=== PATIENT | male | born 1965 | race Caucasian/White ===

== ENCOUNTER 2020-02-18 07:19 | Day surgery (SDC) | payer BC ==
[~2020-02-18] VITALS: Ht 175.3 cm; Wt 68.9 kg
[2020-02-18] VITALS (8 sets, daily range): BP systolic 95–120; BP diastolic 63–80
[~2020-02-18 07:19] MED LIST: ASPIRIN81 MG ORAL; Atropine Inj 1mg/10ml Syr IVP PRN; BREO ELLIPTA 11 EACH IH; CRESTOR10 M2 ORAL; DiphenhydrAMINE 50mg/ml Inj IVP PRN; LR 1000ml 1,000 ML IVLG SCH; Midazolam 2mg/2ml Inj IVP PRN; OMEPRAZOLE40 M1 ORAL; PLAVIX75 MG ORAL; PROAIR HFA8.5 GM INH; UNOBMED; XIGDUO XR 5 MG1 EACH PO; fentaNYL 100 mcg/2 mL IV PRN
--- NOTE | 2020-02-18 07:48 | Anethesia Preoperative Eval ---
Anesthesia Pre-op PMH/ROS General Date of Evaluation: Feb 18, 2020 Time of Evaluation: 07:04 Anesthesiologist: debi ASA Score: ASA 3 Mallampati Score Class I : Soft palate, uvula, fauces, pillars visible Class II: Soft palate, uvula, fauces visible Class III: Soft palate, base of uvula visible Class IV: Only hard plate visible Mallampati Classification: Class II Surgeon: lilia Diagnosis: gerd, diarrhea Surgical Procedure: egd/colonoscopy Anesthesia History: none Social History: current smoker Family History: no anesthesia problems Allergies: Coded Allergies: PENICILLINS (Verified Allergy, Severe, SWELLING, HIVES, RASH , 02/12/20) Medications: see eMAR Patient NPO?: Yes Past Medical History Cardiovascular: Reports: other - dvt bilateral legs Pulmonary: Reports: asthma, COPD, other - hx/o dyspnea, Gastrointestinal/Genitourinary: Reports: GERD, other - diverticulitis Hematology/Immune: Reports: other - anticoagulation therapy, covid 19 ? PSxH Narrative: sinus surgery Anesthesia Pre-op Phys. Exam Physician Exam Last Vital Signs Date Time Temp Pulse Resp B/P (MAP) Pulse Ox O2 Delivery O2 Flow Rate FiO2 02/18/20 08:03 Room Air 02/18/20 08:01 97.9 82 20 114/73 99 Constitutional: NAD Neurologic: CN 2-12 intact Cardiovascular: RRR Respiratory: CTA Gastrointestinal: S/NT/ND Airway Exam Mallampati Score: Class II MO: limited Neck: flexible TMD: 2fb ROM: limited Anesthesia Pre-op A/P Labs Microbiology Date/Time Source Procedure Growth Status 02/18/20 07:30 Nasopharynx SARS-CoV-2 RdRp Gene Assay - Final Complete Risk Assessment & Plan Assessment: asa3 Plan: mac Status Change Before Surgery: No Pre-Antibiotics Drug: Arielle Purdy MD Feb 18, 2020 07:48
[2020-02-18] MEDS ORDERED: CIALIS20 MG ORAL (08:15)
[2020-02-18] MEDS ORDERED: LR 1000ml 1,000 ML IVLG SCH (09:00)
--- NOTE | 2020-02-18 09:23 | Pre-Procedure Note/Attestation ---
Pre-Procedure Note/Attestation Complete Prior to Procedure Planned Procedure: not applicable Procedure Narrative: esophagogastroduodenoscopy and colonoscopy Indications for Procedure Pre-Operative Diagnosis: gerd, diarrhea Attestation I attest that I discussed the nature of the procedure; its benefits; risks and complications; and alternatives (and the risks and benefits of such alternati ves), prior to the procedure, with the patient (or the patient's legal dental detail representative). I attest that, if there was a reasonable possibility of needing a blood transfusion, the patient (or the patient's legal dental detail representative) was given the [facility] standardized written summary, pursuant to the [place] Blood Safety Act ([place] Health and Safety Code # 1645, as amended). I attest that I re-evaluated the patient just prior to the surgery and that there has been no change in the patient's H&P, except as documented below: Javier Johnson MD Feb 18, 2020 09:23
--- NOTE | 2020-02-18 09:25 | Short Stay Surgery H&P ---
History of Present Illness History of Present Illness Chief Complaint gerd, diarrhea screening colon HPI Allen Watson is a 54 year old male who was admitted on for Gerd, Diarrhea, External Hemorrhage,Rectal Bleed Patient History Allergies: Coded Allergies: PENICILLINS (Verified Allergy, Severe, SWELLING, HIVES, RASH , 02/12/20) PAST MEDICAL HISTORY: (1) COPD (chronic obstructive pulmonary disease) (2) Diverticulitis (3) Diverticulosis (4) HTN (hypertension) Medication History Scheduled Albuterol Sulfate* (Proair Hfa*), 2 PUFFS INH NEEDED, (Reported) Aspirin* (Aspirin*), 81 MG ORAL DAILY, (Reported) Clopidogrel Bisulfate* (Plavix*), 75 MG ORAL DAILY, (Reported) Fluticasone/Vilanterol (Breo Ellipta 100-25 Mcg INH), 1 EACH IH DAILY, (Reported) Omeprazole (Omeprazole), 60 MG ORAL DAILY, (Reported) Rosuvastatin Calcium* (Crestor*), 10 MG ORAL DAILY, (Reported) Tadalafil (Cialis), 20 MG ORAL NEEDED, (Reported) Miscellaneous Medications Dapagliflozin/Metformin HCl (Xigduo Xr 5 mg-500 mg Tablet), 1 EACH PO, (Reported) Review of Systems Cardiovascular: Reports: no symptoms Respiratory: Reports: no symptoms Skeletal: Reports: no symptoms Gastrointestinal: Reports: gastro esophageal reflux disease Genitourinary: Reports: no symptoms Neurologic: Reports: no symptoms Endocrine: Reports: no symptoms Hematologic: Reports: no symptoms Physical Exam Vital Signs Last Vital Signs Date Time Temp Pulse Resp B/P (MAP) Pulse Ox O2 Delivery O2 Flow Rate FiO2 02/18/20 08:03 Room Air 02/18/20 08:01 97.9 82 20 114/73 99 Labs Laboratory Tests Test 02/18/20 08:42 POC Whole Blood Glucose Pending Skin: normal HENT: normal Heart: normal Lungs: normal Abdomen: normal Extremities: normal Plan Plan of Care esophagogastroduodenoscopy and colonoscopy Attestation Are the patient's medical conditions optimized for surgery? Attestation Response: yes Javier Johnson MD Feb 18, 2020 09:24
[2020-02-18] MEDS ORDERED: Lidocaine 1% MPF 10mg/ml 5ml ONE (09:30)
[2020-02-18] MEDS ORDERED: LR 1000ml ONE (09:30)
--- NOTE | 2020-02-18 10:18 | Endoscopy Procedure Note ---
Endoscopy Procedure Note General Indication for Procedure: screening colon, GERD Procedures Performed: EGD, colonoscopy Operative Findings/Diagnosis: 4 polyps, gastritis Specimen: yes Pt Tolerated Procedure Well: Yes Estimated Blood Loss: none Anesthesia Anesthesiologist: garima cuellar Anesthesia: MAC Inserted Devices Implant(s) used?: No Quality Quality of Bowel Preparation: Good Did scope reach the cecum?: Yes Was there any complications?: No GI Core Measures 50 yrs or older w/o bx or poly: No 10yrs. F/U recommended: Yes If not recommended, why?: Above average risk 18 years or older w/prev. colo: No Javier Johnson MD Feb 18, 2020 10:18
--- NOTE | 2020-02-18 12:09 | Immediate Post-Op Evaluation ---
Immediate Post-Op Evalulation Immediate Post-Op Evalulation Procedure: egd/colonoscopy w/bx Date of Evaluation: Feb 18, 2020 Time of Evaluation: 10:38 IV Fluids: 850ml lr Blood Products: none Estimated Blood Loss: negligible Blood Pressure Systolic: 95 Blood Pressure Diastolic: 83 Pulse Rate: 75 Respiratory Rate: 18 O2 Sat by Pulse Oximetry: 100 Temperature (Fahrenheit): 98.1 Pain Score (1-10): 0 Nausea: No Vomiting: No Complications none Patient Status: awake, reacts, patent Hydration Status: adequate Drug: Arielle Purdy MD Feb 18, 2020 12:09
--- NOTE | 2020-02-18 12:11 | 48 Hour Post Anesthesia Eval ---
Post Anesthesia Evaluation Procedure: egd/colonoscopy w/bx Date of Evaluation: Feb 18, 2020 Time of Evaluation: 10:40 Blood Pressure Systolic: 116 0: 75 Pulse Rate: 66 Respiratory Rate: 18 Temperature (Fahrenheit): 98.1 O2 Sat by Pulse Oximetry: 100 Airway: patent Nausea: No Vomiting: No Pain Intensity: 0 Hydration Status: adequate Cardiopulmonary Status: stable Mental Status/LOC: patient returned to baseline Post-Anesthesia Complications: none Follow-up care needed: N/A Arielle Cage MD Feb 18, 2020 12:10
--- NOTE | 2020-02-18 12:14 | Procedure Note ---
DATE OF PROCEDURE: 02/18/2020 SURGEON: Javier Johnson MD. PROCEDURE: Upper endoscopy with biopsy and colonoscopy with biopsy. ANESTHESIA: Per Dr. Teran. INSTRUMENT: Olympus adult flexible upper endoscope and colonoscope. INDICATION: Screening colonoscopy evaluation and chronic GERD. REASON FOR PROCEDURE: The procedure, risks, benefits, and possible consequences, including hemorrhage, aspiration, perforation and infection, and alternative treatments, were explained to the patient/legal guardian by Dr. Javier Johnson and the patient/legal guardian understood and accepted these risks. PROCEDURE IN DETAIL: After informed consent was obtained and the patient was adequately sedated, Olympus upper endoscope was advanced from mouth into the second portion of the duodenum and retroflexion was performed in the stomach. The patient has evidence of diffuse gastritis. Random biopsy from antrum was obtained to rule out H. pylori infection. The patient also has evidence of three small inlet patches in the upper esophagus. At this time, the upper endoscope was retrieved and the patient was turned over for colonoscopy. First, rectal examination was performed, which was positive for large internal hemorrhoids. Then, the scope was advanced from rectum into the cecum, then subsequently into terminal ileum. Quality of prep was good. The patient had total of five polyps, two in the sigmoid, one in transverse, and two in the ascending colon, all small polyps are removed with cold biopsy forceps technique. The patient had diverticulosis both in the right and left colon, but mainly in the left colon. Retroflexion of rectum showed evidence of large internal hemorrhoids. SUMMARY OF FINDINGS: 1. Gastritis, status post biopsy. 2. inlet patch. 3. Five colonic polyps removed. See above for details. 4. Diverticulosis. 5. Internal hemorrhoids. RECOMMENDATIONS: Follow pathology and treat accordingly. We recommend repeat colonoscopy in three years. Javier Johnson M.D. DR: ANTONI JOB#: [id number] CC:
== END 2020-02-18 11:25 | disposition home or self-care (01) ==
LOC: GAS 07:19
DX: Z12.11 Encounter for screening for malignant neoplasm of colon (principal); K21.9 Gastro-esophageal reflux disease without esophagitis; K29.70 Gastritis, unspecified, without bleeding; K63.5 Polyp of colon; K57.90 Diverticulosis of intestine, part unspecified, without perforation or abscess without bleeding; K64.8 Other hemorrhoids; J44.9 Chronic obstructive pulmonary disease, unspecified; I10 Essential (primary) hypertension; Z79.82 Long term (current) use of aspirin; Z88.0 Allergy status to penicillin; F17.200 Nicotine dependence, unspecified, uncomplicated; Z86.718 Personal history of other venous thrombosis and embolism
CPT/HCPCS: 43239; 45380; 82962; 94003; J2704; J7120; U0002; 94150